=== PATIENT | female | born 1965 | race Hispanic/Latino ===

== ENCOUNTER 2017-07-18 20:59 | Emergency (ER) | payer OTHER ==
[2017-07-18 21:21] LABS: APPEARANCE,URINE Clear (CLEAR); BILIRUBIN,URINE Negative (NEGATIVE); COLOR,URINE Yellow (YELLOW); GLUCOSE, URINE (UA) Negative (NEGATIVE); KETONES,URINE Negative (NEGATIVE); LEUKOCYTE ESTERASE ,URINE Moderate (NEGATIVE); NITRATE,URINE Negative (NEGATIVE); OCCULT BLOOD,URINE Trace (NEGATIVE); PROTEIN,URINE Negative (NEGATIVE)
[2017-07-18 21:35] LABS: BACTERIA,URINE Few /HPF (None Seen); RBC,URINE None Seen /HPF (0-1)
[2017-07-18 21:35] LABS: BASOPHILS % (AUTO) 0.7 % (0.0-5.0); EOSINOPHILS % (AUTO) 1.7 % (0.0-8.0); HEMATOCRIT 37.7 % (36-48); LYMPHOCYTES % (AUTO) 20.3 % (21.0-51.0); MEAN CORPUSCULAR HEMOGLOBIN 29.2 pg (27.0-33.0); MEAN CORPUSCULAR HGB CONC 33.5 g/dL (32.0-36.0); MEAN CORPUSCULAR VOLUME 87.2 fL (79-99); MONOCYTES % (AUTO) 6.7 % (3.0-13.0); NEUTROPHILS % (AUTO) 70.6 % (40.0-77.0); PLATELET COUNT (AUTO) 258 K/uL (130-400); RED BLOOD CELL COUNT(AUTO) 4.32 MIL/uL (4.00-5.50); RED CELL DISTRIBUTION WIDTH 13.5 % (11.0-15.5); WHITE BLOOD COUNT (AUTO) 14.4 K/uL (4.8-10.8)
[2017-07-18] MEDS ORDERED: CEFTRIAXONE SODIUM 1 GM ONE (21:44)
[2017-07-18] MEDS ORDERED: KETOROLAC TROMETHAMINE 30MG/ML ONE (21:44)
[2017-07-18] MEDS ORDERED: SODIUM CHLORIDE 0.9% 1000ML 1,000 ML IV ONE (21:44)
[2017-07-18] MEDS ORDERED: ACETAMINOPHEN EXTRA STRENGTH 500 MG TABLET ONE (21:44)
[2017-07-18] MEDS ORDERED: SODIUM CHLORIDE 0.9% 50 ML IV ONE (21:44)
[2017-07-18 21:54] LABS: CREATININE 1.1 mg/dL (0.5-1.5); POTASSIUM 3.6 mmol/L (3.5-5.1)
== END 2017-07-18 23:26 | disposition home or self-care (01) ==
LOC: EDH 20:59
DX: K57.32 Diverticulitis of large intestine without perforation or abscess without bleeding (principal); R30.0 Dysuria; Z98.890 Other specified postprocedural states
CPT/HCPCS: 36415; 74176; 80048; 81001; 83605; 85025; 96361; 96374; 96375; 99285; J0696; J1885; J7030

== ENCOUNTER 2017-07-24 15:17 | Emergency (ER) | payer OTHER ==
[2017-07-24] MEDS ORDERED: DICYCLOMINE HCL 20 MG TAB ONE (15:39)
[2017-07-24 15:57] LABS: BASOPHILS % (AUTO) 0.3 % (0.0-5.0); EOSINOPHILS % (AUTO) 1.7 % (0.0-8.0); HEMATOCRIT 39.2 % (36-48); LYMPHOCYTES % (AUTO) 16.3 % (21.0-51.0); MEAN CORPUSCULAR HGB CONC 33.3 g/dL (32.0-36.0); MEAN CORPUSCULAR VOLUME 87.1 fL (79-99); MONOCYTES % (AUTO) 6.2 % (3.0-13.0); NEUTROPHILS % (AUTO) 75.5 % (40.0-77.0); PLATELET COUNT (AUTO) 297 K/uL (130-400); RED CELL DISTRIBUTION WIDTH 13.6 % (11.0-15.5); WHITE BLOOD COUNT (AUTO) 14.2 K/uL (4.8-10.8)
[2017-07-24 15:57] LABS: APPEARANCE,URINE Cloudy (CLEAR); BILIRUBIN,URINE Negative (NEGATIVE); COLOR,URINE Yellow (YELLOW); GLUCOSE, URINE (UA) Negative (NEGATIVE); KETONES,URINE Negative (NEGATIVE); LEUKOCYTE ESTERASE ,URINE Moderate (NEGATIVE); NITRATE,URINE Negative (NEGATIVE); OCCULT BLOOD,URINE Negative (NEGATIVE); PROTEIN,URINE Negative (NEGATIVE); UROBILINOGEN,URINE 0.2 mg/dL (0.2-1.0)
[2017-07-24 16:06] LABS: CREATININE 0.9 mg/dL (0.5-1.5); POTASSIUM 3.8 mmol/L (3.5-5.1)
[2017-07-24 16:08] LABS: BACTERIA,URINE Rare /HPF (None Seen); RBC,URINE None Seen /HPF (0-1)
[2017-07-24 16:09] LABS: RENAL EPITHELIAL CELLS,URINE Few /LPF (None Seen); TRANSITIONAL EPI CELLS,URINE Few /LPF (None Seen)
[2017-07-24 16:10] LABS: ALBUMIN 3.3 g/dL (3.5-5.0); BILIRUBIN,TOTAL 0.3 mg/dL (0.2-1.0); TOTAL PROTEIN, SERUM 8.4 g/dL (6.0-8.3)
== END 2017-07-24 16:43 | disposition home or self-care (01) ==
LOC: EDH 15:17
DX: K57.92 Diverticulitis of intestine, part unspecified, without perforation or abscess without bleeding (principal)
CPT/HCPCS: 36415; 80053; 81001; 85025

== ENCOUNTER 2019-07-15 18:39 | Emergency (ER) | payer OTHER ==
[2019-07-15 19:07] LABS: APPEARANCE,URINE Clear (CLEAR); BILIRUBIN,URINE Negative (NEGATIVE); COLOR,URINE Yellow (YELLOW); GLUCOSE, URINE (UA) Negative (NEGATIVE); KETONES,URINE Negative (NEGATIVE); LEUKOCYTE ESTERASE ,URINE Large (NEGATIVE); NITRATE,URINE Negative (NEGATIVE); OCCULT BLOOD,URINE Negative (NEGATIVE); PH,URINE 6.5 (5.0-8.0); PROTEIN,URINE Negative (NEGATIVE); UROBILINOGEN,URINE 0.2 mg/dL (0.2-1.0)
[2019-07-15 19:17] LABS: BACTERIA,URINE Moderate /HPF (None Seen); SQUAMOUS EPITHELIAL CELL,UR Few /HPF (0-2)
[2019-07-15 19:18] LABS: MUCUS,URINE Few LPF (None Seen)
[2019-07-15] MEDS ORDERED: IBUPROFEN 400 MG TABLET ONE (19:22)
[2019-07-15] MEDS ORDERED: IBUPROFEN 200 MG TAB ONE (19:23)
[2019-07-15] MEDS ORDERED: SODIUM CHLORIDE 0.9% 1000ML 1,000 ML IV ONE (19:23)
[2019-07-15 19:24] LABS: BASOPHILS % (AUTO) 0.4 % (0.0-5.0); HEMATOCRIT 43.6 % (36-48); MEAN CORPUSCULAR HEMOGLOBIN 29.2 pg (27.0-33.0); MEAN CORPUSCULAR HGB CONC 32.3 g/dL (32.0-36.0); MEAN CORPUSCULAR VOLUME 90.3 fL (79-99); MONOCYTES % (AUTO) 13.7 % (3.0-13.0); NEUTROPHILS % (AUTO) 58.7 % (40.0-77.0); PLATELET COUNT (AUTO) 164 K/uL (130-400); RED BLOOD CELL COUNT(AUTO) 4.83 MIL/uL (4.00-5.50); RED CELL DISTRIBUTION WIDTH 13.5 % (11.0-15.5); WHITE BLOOD COUNT (AUTO) 5.3 K/uL (4.8-10.8)
[2019-07-15 19:28] LABS: CREATININE 0.7 mg/dL (0.5-1.5); POTASSIUM 4.6 mmol/L (3.5-5.1)
[2019-07-15 19:33] LABS: ALBUMIN 3.7 g/dL (3.5-5.0); BILIRUBIN,TOTAL 0.3 mg/dL (0.2-1.0); TOTAL PROTEIN, SERUM 7.8 g/dL (6.0-8.3)
[2019-07-15] MEDS ORDERED: KETOROLAC TROMETHAMINE 30MG/ML ONE (20:29)
== END 2019-07-15 20:36 | disposition home or self-care (01) ==
LOC: EDH 18:39
DX: J10.1 Influenza due to other identified influenza virus with other respiratory manifestations (principal)
CPT/HCPCS: 36415; 71045; 80053; 81001; 85025; 87804 ×2; 87880; 96372; 99285; J1885; J7030

== ENCOUNTER 2021-07-22 00:16 | Emergency (ER) | payer OTHER ==
[~2021-07-22] VITALS: Ht 162.6 cm; Wt 104.3 kg
[2021-07-22 00:44] LABS: BASOPHILS % (AUTO) 0.1 % (0.0-5.0); EOSINOPHILS % (AUTO) 0.7 % (0.0-8.0); HEMATOCRIT 40.9 % (36-48); LYMPHOCYTES % (AUTO) 29.2 % (21.0-51.0); MEAN CORPUSCULAR HEMOGLOBIN 29.8 pg (27.0-33.0); MEAN CORPUSCULAR HGB CONC 32.5 g/dL (32.0-36.0); MEAN CORPUSCULAR VOLUME 91.5 fL (79-99); MONOCYTES % (AUTO) 7.4 % (3.0-13.0); NEUTROPHILS % (AUTO) 62.2 % (40.0-77.0); PLATELET COUNT (AUTO) 180 K/uL (130-400); RED BLOOD CELL COUNT(AUTO) 4.47 MIL/uL (4.00-5.50); RED CELL DISTRIBUTION WIDTH 13.2 % (11.0-15.5); WHITE BLOOD COUNT (AUTO) 8.6 K/uL (4.8-10.8)
[2021-07-22 00:58] LABS: CREATININE 1.1 mg/dL (0.5-1.5); POTASSIUM 3.9 mmol/L (3.5-5.1)
[2021-07-22 01:03] LABS: ALBUMIN 3.8 g/dL (3.5-5.0); BILIRUBIN,TOTAL 0.2 mg/dL (0.2-1.0); TOTAL PROTEIN, SERUM 7.6 g/dL (6.0-8.3)
[2021-07-22] MEDS ORDERED: KETOROLAC 30MG VIAL (30MG/ML) IV ONE (02:30)
[2021-07-22] MEDS ORDERED: DIAZEPAM 2 MG TAB PO ONE (02:30)
[2021-07-22] MEDS ORDERED: IOHEXOL 350 MG/ML 100ML INFUS..BTL IV ONE (03:10)
[2021-07-22] MEDS ORDERED: GABA-529 PO (06:43)
[2021-07-22 07:08] VITALS: BP 120/60
== END 2021-07-22 07:07 | disposition home or self-care (01) ==
LOC: EDH 00:16
DX: R20.2 Paresthesia of skin (principal); R07.89 Other chest pain; R68.84 Jaw pain; Z79.899 Other long term (current) drug therapy
CPT/HCPCS: 36415; 70450; 71045; 71275; 80053; 84484 ×2; 85025; 85378; 93005 ×2; 96374; 99285; J1885; Q9967

== ENCOUNTER 2023-10-10 20:01 | Emergency (ER) | payer BC ==
[~2023-10-10] VITALS: Ht 165.1 cm; Wt 111.1 kg
[~2023-10-10 20:01] MED LIST: CYCL-309 PO; GABA-529 PO; IBUP-1493 PO
[2023-10-10 20:36] VITALS: BP 154/77; PULSE 71; RESP 20; O2SAT 99
[2023-10-10] MEDS: ONDANSETRON ODT 4MG TAB SL ONE (22:45)
[2023-10-10] MEDS: FAMOTIDINE 20MG TAB PO ONE (22:45)
[2023-10-10] MEDS: HYDROCODONE/ACETAMINOPHEN 10/325 MG TAB PO ONE (22:45)
[2023-10-10] MEDS: IBUPROFEN 600 MG TABLET PO ONE (22:46)
[2023-10-10] MEDS ORDERED: IBUP-2070 PO (23:54)
[2023-10-10] MEDS ORDERED: PRED20TA3 PO (23:54)
== END 2023-10-11 00:22 | disposition home or self-care (01) ==
LOC: EDH 20:01
DX: M17.12 Unilateral primary osteoarthritis, left knee (principal); M25.562 Pain in left knee; M79.662 Pain in left lower leg
CPT/HCPCS: 73562; 93971

== ENCOUNTER 2024-04-01 12:09 | Emergency (ER) | payer BC ==
[~2024-04-01] VITALS: Ht 162.6 cm; Wt 112.5 kg
[~2024-04-01 12:09] MED LIST changes: +IBUP-2070 PO; +PRED20TA3 PO
[2024-04-01 12:37] LABS: CREATININE 0.9 mg/dL (0.5-1.0); POTASSIUM 3.5 mmol/L (3.5-5.1)
[2024-04-01 12:42] LABS: ALBUMIN 3.3 g/dL (3.5-5.0); BILIRUBIN,TOTAL 0.5 mg/dL (0.2-1.0); TOTAL PROTEIN, SERUM 7.7 g/dL (6.0-8.3)
[2024-04-01 12:44] LABS: B-TYPE NATRIURETIC PEPTIDE 29 pg/mL (0-100)
[2024-04-01 12:46] LABS: BASOPHILS # (AUTO) 0.04 K/uL (0.00-0.20); BASOPHILS % (AUTO) 0.4 % (0.0-5.0); EOSINOPHILS # (AUTO) 0.11 K/uL (0.00-0.70); HEMATOCRIT 40.3 % (36-48); IMMATURE GRANULOCYTE ABSOLUTE 0.06 K/uL (0-1); LYMPHOCYTES # (AUTO) 3.1 K/uL (1.0-4.8); LYMPHOCYTES % (AUTO) 29.1 % (21.0-51.0); MEAN CORPUSCULAR HEMOGLOBIN 29.6 pg (27.0-33.0); MEAN CORPUSCULAR VOLUME 89.6 fL (79-99); MONOCYTES # (AUTO) 0.7 K/uL (0.1-1.0); MONOCYTES % (AUTO) 6.2 % (3.0-13.0); NEUTROPHILS # (AUTO) 6.6 K/uL (1.8-7.7); NEUTROPHILS % (AUTO) 62.7 % (40.0-77.0); PLATELET COUNT (AUTO) 237 K/uL (130-400); RED CELL DISTRIBUTION WIDTH 13.5 % (11.0-15.5); WHITE BLOOD COUNT (AUTO) 10.6 K/uL (4.8-10.8)
[2024-04-01 13:09] LABS: ADD UA MICROSCOPIC YES; APPEARANCE,URINE CLOUDY (CLEAR); BILIRUBIN,URINE NEGATIVE (NEGATIVE); COLOR,URINE YELLOW (YELLOW); GLUCOSE, URINE (UA) NEGATIVE (NEGATIVE); KETONES,URINE NEGATIVE (NEGATIVE); LEUKOCYTE ESTERASE ,URINE 500 Leu/uL (NEGATIVE); NITRATE,URINE NEGATIVE (NEGATIVE); PROTEIN,URINE 10 mg/dL (NEGATIVE); UROBILINOGEN,URINE 0.2 mg/dL (0.2-1.0)
[2024-04-01 13:12] LABS: BACTERIA,URINE FEW /HPF (None Seen); MUCUS,URINE RARE LPF (None Seen); SQUAMOUS EPITHELIAL CELL,UR MOD /HPF (0-2); WBC,URINE 51-100 /HPF (0-1)
[2024-04-01] MEDS ORDERED: CEPH500B PO (14:13)
[2024-04-01] MEDS: cefTRIAXone 1G VIAL IVPB ONE (14:23)
[2024-04-01 14:28] VITALS: BP 138/74; PULSE 72; RESP 18; TEMP 98.2; O2SAT 99
== END 2024-04-01 14:34 | disposition home or self-care (01) ==
LOC: EDH 12:09
DX: N39.0 Urinary tract infection, site not specified (principal); R07.89 Other chest pain; Z79.1 Long term (current) use of non-steroidal anti-inflammatories (NSAID); Z79.52 Long term (current) use of systemic steroids
CPT/HCPCS: 99284; 96374; 71045; 82550; 84484; 80053; 83880; 85025; 87086; 81001; 36415; 93005; J0696

== ENCOUNTER 2025-07-01 06:25 | Emergency (ER) | payer BC ==
[~2025-07-01] VITALS: Ht 162.6 cm; Wt 107.0 kg
[2025-07-01 06:53] LABS: IMMATURE GRANULOCYTE ABSOLUTE 0.04 K/uL (0-1); NUCLEATED RED BLOOD CELLS 0.0 % (0.0-0.19); PLATELET COUNT (AUTO) 244 K/uL (130-400); RED BLOOD CELL COUNT(AUTO) 4.55 MIL/uL (4.00-5.50); RED CELL DISTRIBUTION WIDTH 13.1 % (11.0-15.5); WHITE BLOOD COUNT (AUTO) 12.1 K/uL (4.8-10.8)
[2025-07-01 07:07] LABS: SARS-CoV-2, RNA, NAAT NEGATIVE SARS CoV-2 (NEGATIVE)
[2025-07-01 07:11] LABS: INFLUENZA TYPE A Negative For Type A (NEGATIVE); INFLUENZA TYPE B Negative For Type B (NEGATIVE)
[2025-07-01 07:15] LABS: CREATININE 0.8 mg/dL (0.5-1.0); GLOMERULAR FILTR. RATE CALC 84.0 mL/min (>90); GLUCOSE,RANDOM 128.0 mg/dL (70-105); SODIUM SERUM 140.0 mmol/L (136-145); UREA NITROGEN, BLOOD 13.0 mg/dL (7-18)
--- NOTE | 2025-07-01 07:37 | EKG ---
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
--- NOTE | 2025-07-01 07:50 | ERN ---
ED Note History of Present Illness Stated Complaint: SHORTNESS OF BREATH Chief Complaint: Shortness of Breath Time Seen by MD: 07:14 Dictation: 59-year-old female presenting to the emergency department with cough cold congestion and shortness of breath over the past few days was seen by her doctor given Rocephin and steroids but says that she still feels bad and now her eyes are red and watery. Allergies: Coded Allergies: No Known Drug Allergies (Verified Allergy, Unknown, 07/08/24) morphine (Unverified Allergy, Unknown, HALLUCINATIONS, 10/26/24) Home Meds Unable to Obtain Active Prescriptions or Reported Meds Past Medical History Past Medical History: Diverticulitis, Diverticulosis Surgical History: Other, Surgical History Other: LT KNEE SX Family History: DM, HTN Social History: Negative, Lives with family History: Not Applicable Review of System Dictation Constitutional: Per HPI Eyes: Per HPI ENT: Per Hpi Cardiovascular: Negative for chest pain, palpitations, and edema Respiratory per HPI Abdomen/GI: Negative for abdominal pain, nausea, vomiting, diarrhea, and constipation Back: Negative for injury and pain : Negative for injury, bleeding and discharge MS/Extremity: Negative for injury and deformity Skin: Negative for rash, and discoloration Neuro: Negative for headache, weakness, numbness, tingling, and seizure Psych: Negative for suicide ideation, homicidal ideation, and hallucinations Initial Vital Sign VS Vital Signs Date Time Temp Pulse Resp B/P (MAP) Pulse Ox O2 Delivery O2 Flow Rate FiO2 07/01/25 06:27 98.1 81 16 149/77 97 Room Air 0 07/01/25 07:30 21 Physical Exam Dictation General: awake, alert, NAD Head/Face: Normocephalic, atraumatic Eyes: PERRL, EOMI, vision at baseline ENT: oral cavity clear, TMs clear, no signs of infection Neck: Trachea midline, supple, no nuchal rigidity Cardiovascular: RRR, normal S1/S2, No MRGs, no JVD Respiratory: CTAB, no respiratory distress, No rales or wheezes Abdomen: Soft, non-tender, non-distended, normal bowel sounds, no guarding or rebound. Skin: Warm, dry, normal turgor, no rash MS/Extremity: Pulses equal, no cyanosis, neurovascular intact, FROM Neuro: COAx4, GCS 15, strength 5/5, CN 2-12 intact, normal cerebellar exam, normal gait, Psych: Normal behavior, mood, and affect normal Results (Laboratory/Radiology) Laboratory/Radiology Laboratory Tests Test 07/01/25 06:40 White Blood Count 12.1 K/uL (4.8-10.8) H Red Blood Count 4.55 MIL/uL (4.00-5.50) Hemoglobin 13.0 g/dL (12.0-16.0) Hematocrit 40.8 % (36-48) Mean Corpuscular Volume 89.7 fL (79-99) Mean Corpuscular Hemoglobin 28.6 pg (27.0-33.0) Mean Corpuscular Hemoglobin Concent 31.9 g/dL (32.0-36.0) L Red Cell Distribution Width 13.1 % (11.0-15.5) Platelet Count 244 K/uL (130-400) Mean Platelet Volume 10.5 fL (7.5-10.5) Immature Granulocyte % (Auto) 0.3 % (0-1) Neutrophils (%) (Auto) 68.4 % (40.0-77.0) Lymphocytes (%) (Auto) 22.5 % (21.0-51.0) Monocytes (%) (Auto) 5.4 % (3.0-13.0) Eosinophils (%) (Auto) 3.1 % (0.0-8.0) Basophils (%) (Auto) 0.3 % (0.0-5.0) Neutrophils # (Auto) 8.3 K/uL (1.8-7.7) H Lymphocytes # (Auto) 2.7 K/uL (1.0-4.8) Monocytes # (Auto) 0.7 K/uL (0.1-1.0) Eosinophils # (Auto) 0.38 K/uL (0.00-0.70) Basophils # (Auto) 0.04 K/uL (0.00-0.20) Absolute Immature Granulocyte (auto 0.04 K/uL (0-1) Nucleated Red Blood Cells 0.0 % (0.0-0.19) Sodium Level 140 mmol/L (136-145) Potassium Level 3.8 mmol/L (3.5-5.1) Chloride Level 102 mmol/L (101-111) Carbon Dioxide Level 27 mmol/L (21-32) Blood Urea Nitrogen 13 mg/dL (7-18) Creatinine 0.8 mg/dL (0.5-1.0) Glomerular Filtration Rate Calc 84 mL/min (>90) Random Glucose 128 mg/dL (70-105) H Total Calcium 8.7 mg/dL (8.5-10.1) Troponin I High Sensitivity 6 ng/L (4-50) B-Type Natriuretic Peptide 23 pg/mL (0-100) Influenza Type A Antigen Negative For Type A Influenza Type B Antigen Negative For Type B SARS-CoV-2, RNA, NAAT NEGATIVE SARS CoV-2 Labs Reviewed?: Yes EKG: (+) NSR, (+) rhythm, (+) nonspecific ST T wave chg, (+) unchanged ED Course ED Course Orders Procedure Category Date Status Time Cbc With Differential LAB 07/01/25 Complete 06:30 Basic Metabolic Panel LAB 07/01/25 Complete 06:30 Influenza Type A & B, LAB 07/01/25 Complete Rapid 06:30 Covid Rna Naat LAB 07/01/25 Complete 06:30 Chest 1vw RAD 07/01/25 Resulted 06:30 B-Type Natriuretic LAB 07/01/25 Complete Peptide 06:30 12 Lead Ekg Tracing- EKG 07/01/25 Complete Technical 07:14 Troponin I High LAB 07/01/25 Complete Sensitivity 07:14 Ketorolac PHA 07/01/25 Complete Tromethamine 15mg/Ml 07:41 0.9% Nacl 500ml PHA 07/01/25 Complete Iv.Soln (Ns 500ml 08:00 Ct Head/Brain W/O CT 07/01/25 Resulted Contrast 07:57 Diazepam 5 Mg/Ml 2 Ml PHA 07/01/25 Complete Syg (Valium 5 Mg/M 09:38 Current Medications Medications (Trade) Dose Ordered Sig/[place] Route PRN Reason Start Time Stop Time Status Last Admin Dose Admin Diazepam (VALium 5 MG/ML 2 ML SYG) 5 mg ONCE STAT IVP 07/01/25 09:38 07/01/25 09:40 DC Ketorolac Tromethamine (toRADol) 15 mg ONCE STAT IV 07/01/25 07:41 07/01/25 07:45 DC 07/01/25 09:33 Sodium Chloride 500 ml @ 0 mls/hr ONCE ONCE IV 07/01/25 08:00 07/01/25 08:01 DC 07/01/25 09:34 Vital Signs Date Time Temp Pulse Resp B/P (MAP) Pulse Ox O2 Delivery O2 Flow Rate FiO2 07/01/25 09:38 97.9 61 17 129/69 96 Room Air* 0 21 07/01/25 07:30 97.9 66 18 129/69 98 Room Air* 0 21 07/01/25 06:27 98.1 81 16 149/77 97 Room Air 0 Medical Decision Making MDM MDM: Differential diagnosis: Rationale: Tests considered and ordered secondary to shared decision making include: Previous outside records reviewed: Old ER visits. Risk of complication and/or morbidity or mortality of patient management: None Medications-Per medication reconciliation Need for hospitalization: Patient does not meet criteria for hospitalization. Need for emergency major/minor surgery: No There are no social concerns with this patient. Prescription drug management Prescriptions will include symptomatic care Patient's prior external medical records from other ER visits were reviewed by me as indicated. Prior testing and results from previous visits were reviewed. Prior tests were taken into account with medical decision making and resource utilization, independent historian/historians were used to obtain complete medical history. I independently interpreted the test that were performed, results were reviewed by me and considered findings on radiology if ordered. Medical management and examination interpretation discussions were had by me with other qualified healthcare professionals as indicated for the patient's care. 59-year-old with headache cough cold congestion viral syndrome recently got steroids and antibiotics with primary care doctor, CT of the head was negative, patient offered admission if still feeling bad however patient says she feels go od and wants to go home all her labs were stable and vitals are stable patient has prescriptions with pharmacy. DX & DISP Disposition: Discharge Departure Impression: Primary Impression: Acute headache Additional Impressions: Acute sinusitis, Acute dehydration Condition: Stable Scripts Unable to Obtain Active Prescriptions or Reported Meds Referrals: CARLOS BECKFORD MD (PCP) ELÍAS MCMANUS MD Jul 01, 2025 07:50
--- NOTE | 2025-07-01 08:04 | NUR ---
PT TO CT
--- NOTE | 2025-07-01 08:38 | HMCIMG ---
EXAM: CT Head Without IV contrast. CLINICAL HISTORY: headache TECHNIQUE: Axial computed tomography images of the head/brain without intravenous contrast. COMPARISON: None provided. FINDINGS: BRAIN: No evidence of acute hemorrhage. No mass lesion. No CT evidence for acute territorial infarct. No midline shift or extra-axial collections. Falx calcification is present. VENTRICLES: No hydrocephalus. ORBITS: The orbits are unremarkable. SINUSES AND MASTOIDS: Complete opacification of the left maxillary sinus with obstruction of the maxillary ostium, consistent with sinusitis. The rest of the paranasal sinuses and mastoid air cells are clear. BONES: No fracture. SOFT TISSUES: Unremarkable. IMPRESSION: No acute intracranial abnormality. Sinusitis. /[place]
[2025-07-01] MEDS: 0.9% NACL 500ML IV.SOLN 500 ML IV ONE (09:34)
--- NOTE | 2025-07-01 09:45 | HMCIMG ---
EXAM: CR Chest, 1 View. CLINICAL HISTORY: SOB COMPARISON: None provided. FINDINGS: Obliquity seen. LUNGS: There is no mass, infiltrate, or acute pulmonary abnormality. PLEURAL SPACES: No evidence of pleural effusion or pneumothorax. MEDIASTINUM: Mild cardiomegaly. Mediastinal contours within normal limits. BONES: No aggressive appearing osseous lesion seen. IMPRESSION: No acute cardiopulmonary pathology is evident. /[place]
[2025-07-01 12:05] VITALS: BP 119/67; PULSE 65; RESP 18; TEMP 98.2; O2SAT 97
== END 2025-07-01 12:30 | disposition home or self-care (01) ==
LOC: EDH 06:25
DX: J01.90 Acute sinusitis, unspecified (principal); E86.0 Dehydration; R51.9 Headache, unspecified; Z20.822 Contact with and (suspected) exposure to COVID-19; Z88.5 Allergy status to narcotic agent
CPT/HCPCS: 99284; 96374; 70450; 71045; 87635; 96361; 84484; 80048; 83880; 85025; 87804 ×2; 36415; 93005; J1885; J7040; J3360